=== PATIENT | female | born 1965 | race Caucasian/White ===

== ENCOUNTER → 2017-11-04 | Day surgery (SDC) | payer OTHER, BC ==
[~2017-11-04] MED LIST: Lactated Ringers 1,000 ML IV SCH; Propofol 200 MG/20 ML SDV IV ONE
[2017-11-04 11:39] VITALS: BP 119/60
--- NOTE | 2017-11-07 14:29 | OR ---
DATE OF OPERATION: 11/04/2017 PREOPERATIVE DIAGNOSIS: SCREENING COLONOSCOPY. POSTOPERATIVE DIAGNOSIS: SCREENING COLONOSCOPY. SURGEON: Braulio Spain MD PROCEDURE: FULL-LENGTH COLONOSCOPY. 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 COMPLICATIONS: None. SPECIMEN: None. FINDINGS: Normal full-length colonoscopy. RECOMMENDATIONS: Followup colonoscopy every 10 years. INDICATIONS: The patient was seen and advised to have a screening colonoscopy due to her age. DESCRIPTION OF PROCEDURE: The patient was prepped and draped, placed in left lateral decubitus position. A lubricated Olympus colonoscope was inserted and easily advanced to the cecum. Direct visualization of the ileocecal valve and appendiceal orifice was accomplished. Bowel prep was fine. Upon withdrawal of the scope, throughout the entire length of the colon, I could find no signs of polyps, mass, ulceration, or bleeding sites. No vascular abnormalities or signs of colitis. There were no diverticula. The rectal vault was benign. Retroflexion of scope in the rectum showed no anal lesions. Air was suctioned. Scope removed without complication. ELIZA/RACIEL /[id number]
== END ==
LOC: CC.SDS 08:30
PROVIDERS: ATTEND Family Medicine
DX: Z12.11 Encounter for screening for malignant neoplasm of colon (principal); E66.9 Obesity, unspecified; Z68.35 Body mass index [BMI] 35.0-35.9, adult; K21.9 Gastro-esophageal reflux disease without esophagitis; G47.30 Sleep apnea, unspecified; F41.8 Other specified anxiety disorders; J30.9 Allergic rhinitis, unspecified; Z87.891 Personal history of nicotine dependence; Z79.899 Other long term (current) drug therapy; Z88.5 Allergy status to narcotic agent; Z88.8 Allergy status to other drugs, medicaments and biological substances
CPT/HCPCS: J2704; J7120

== ENCOUNTER 2020-12-13 10:26 | Emergency (ER) | payer OTHER, BC ==
[2020-12-13 10:36] VITALS: BP 124/69; PULSE 76
--- NOTE | 2020-12-13 11:29 | EDM.PDOC ---
ED HPI GENERAL MEDICAL PROBLEM - General Chief Complaint: General Stated Complaint: UTI Time Seen by Provider: 12/13/20 10:50 Source of Information: Reports: Patient History Limitations: Reports: No Limitations - History of Present Illness INITIAL COMMENTS - FREE TEXT/NARRATIVE: Cecilia is a 55 year old female who presents to ER with complaints of dysuria, frequency with urination and chills. Symptoms started yesterday evening and have progressively gotten worse. Has taken tylenol and drank cranberry juice but has not had any improvement of her symptoms. No fevers. Denies nausea/vomiting or back pain. Onset: Gradual Duration: Hour(s): Location: Reports: Abdomen Quality: Reports: Ache Severity: Mild Improves with: Reports: None Associated Symptoms: Reports: Fever/Chills. Denies: Confusion, Chest Pain, Cough, Loss of Appetite, Nausea/Vomiting, Shortness of Breath Perineal Area Pain Score (Numeric/FACES): 3 - Related Data Allergies Allergy/AdvReac Type Severity Reaction Status Date / Time chlorpromazine Allergy Anaphylactic Verified 12/04/18 20:05 [From Thorazine] Shock codeine Allergy Stomach Verified 12/04/18 20:05 Ache metoclopramide HCl Allergy Swollen Verified 12/04/18 20:05 [From Reglan] Tongue morphine Allergy Cardiac Verified 12/04/18 20:05 Arrest ondansetron HCl [From Zofran] Allergy Headache Verified 12/04/18 20:05 perphenazine [From Trilafon] Allergy Cardiac Verified 12/04/18 20:05 Arrest prochlorperazine edisylate Allergy Swollen Verified 12/04/18 20:05 [From Compazine] Tongue prochlorperazine maleate Allergy Swollen Verified 12/04/18 20:05 [From Compazine] Tongue Home Meds: Home Meds Acetaminophen [Tylenol Extra Strength] 1 - 2 tab PO Q6H PRN 05/09/13 [History] DULoxetine [Cymbalta] 60 mg PO BEDTIME 05/09/13 [History] Ferrous Sulfate 325 mg PO BID 05/09/13 [History] Hydroxychloroquine [Plaquenil] 200 mg PO BID 05/09/13 [History] Loratadine [Claritin] 10 mg PO DAILY PRN 05/09/13 [History] Multivitamin [Multivitamins] 1 each PO DAILY 05/09/13 [History] Propranolol [Inderal LA 24 Hr] 60 mg PO BID 05/09/13 [History] ZOLMitriptan [Zomig] 5 mg PO ASDIRECTED 05/09/13 [History] Zolpidem [Ambien] 10 mg PO BEDTIME PRN 05/09/13 [History] diphenhydrAMINE [Benadryl] 50 mg PO BEDTIME PRN 05/09/13 [History] estradioL [Estradiol] 1 mg PO BEDTIME 05/09/13 [History] Ketorolac [Toradol] 60 mg IM Q6H PRN 06/03/13 [History] Promethazine HCl [Phenergan] 25 - 50 mg IM Q8H PRN 06/03/13 [History] Pantoprazole Sodium [Protonix] 40 mg PO BID 08/25/14 [History] Celecoxib 200 mg PO DAILY 08/12/17 [History] Cholecalciferol (Vitamin D3) [Vitamin D] 50,000 unit PO WE 08/12/17 [History] Citalopram [Citalopram HBr] 20 mg PO DAILY 08/12/17 [History] Butalb/Acetaminophen/Caffeine [Wvkhrv-Gxlomtni-Vnbk 50-325-40] 1 tab PO Q8H PRN 11/03/17 [History] Calcium Carb, Citrate/Vit D3 [Calcium + D3 ER Tablet] 2 tab PO DAILY 11/03/17 [History] Hydrocodone/Acetaminophen [Hydrocodon-Acetaminophen 5-325] 1 each PO Q6H PRN 11/03/17 [History] LORazepam 0.5 mg PO Q6H PRN 11/03/17 [History] Phentermine HCl 37.5 mg PO DAILY 11/03/17 [History] Sucralfate 1 gm PO TID PRN 11/03/17 [History] Folic Acid 1 mg PO DAILY 12/04/18 [History] Nitrofurantoin Monohyd/M-Cryst [Macrobid 100 mg Capsule] 100 mg PO BID #20 capsule 12/13/20 [Rx] Past Medical History HEENT History: Reports: Impaired Vision Cardiovascular History: Reports: Hypertension Gastrointestinal History: Reports: [employer] History: Reports: Musculoskeletal History: Reports: RA Other Musculoskeletal History: mix connective autoimmune disease Neurological History: Reports: Migraines Psychiatric History: Reports: Anxiety, Depression Hematologic History: Reports: Anemia, B12 Deficiency, Folic Acid - Infectious Disease History Infectious Disease History: Reports: Chicken Pox, Influenza - Past Surgical History GI Surgical History: Reports: Appendectomy, Cholecystectomy, Hernia Repair/Other Other GI Surgeries/Procedures: Hiatal hernia repair x2 Other Musculoskeletal Surgeries/Procedures:: mutilple join surgeries on wrist, left hip, knee scopes, right ankle. Social & Family History - Tobacco Use Tobacco Use Status *Q: Never Tobacco User Second Hand Smoke Exposure: No - Caffeine Use Caffeine Use: Reports: Coffee - Recreational Drug Use Recreational Drug Use: No ED ROS GENERAL - Review of Systems Review Of Systems: See Below Constitutional: Reports: Chills, Malaise. Denies: Fever, Weakness, Fatigue, Decreased Appetite HEENT: Denies: Ear Pain, Sinus Problem, Throat Pain, Vertigo Respiratory: Denies: Shortness of Breath, Cough Cardiovascular: Denies: Chest Pain, Edema, Lightheadedness Endocrine: Denies: Fatigue GI/Abdominal: Reports: Abdominal Pain. Denies: Constipation, Diarrhea, Nausea, Vomiting : Reports: Dysuria, Frequency, Urgency. Denies: Flank Pain, Hematuria Musculoskeletal: Reports: No Symptoms Skin: Reports: No Symptoms Neurological: Reports: No Symptoms ED EXAM, GENERAL - Physical Exam Exam: See Below Exam Limited By: No Limitations General Appearance: Alert, WD/WN, No Apparent Distress Head: Normocephalic Respiratory/Chest: No Respiratory Distress, Lungs Clear, Normal Breath Sounds Cardiovascular: Regular Rate, Rhythm GI/Abdominal: Normal Bowel Sounds, Soft, Non-Tender Extremities: Normal Inspection, No Pedal Edema Neurological: Alert, Oriented Skin Exam: Warm, Dry Course - Vital Signs Last Recorded V/S: Last Vital Signs Temp 97.8 F 12/13/20 10:30 Pulse 76 12/13/20 10:30 Resp 20 12/13/20 10:30 BP 124/69 12/13/20 10:30 Pulse Ox 98 12/13/20 10:30 - Orders/Labs/Meds Orders: Active Orders 24 hr Category Date Time Status CULTURE URINE [RM] Stat Lab 12/13/20 10:30 Received cefTRIAXone [Rocephin] 1 gm Med 12/13/20 11:30 Active Lidocaine 1% [Xylocaine-MPF 1%] 1.2 ml IM Q24H Medication Orders Ceftriaxone Sodium 1 gm/ (Lidocaine HCl 1.2 ml) 0 gm IM Q24H [facility] Labs: Laboratory Tests 12/13/20 Range/Units 10:30 Urine Color Yellow (YELLOW) Urine Appearance Cloudy (CLEAR) Urine pH 5.5 (4.5-8.0) Ur Specific [place] >= 1.030 H (1.003-1.020) Urine Protein >=300 H (NEGATIVE) mg/dL Urine Glucose (UA) Negative (NEGATIVE) mg/dL Urine Ketones Negative (NEGATIVE) mg/dL Urine Occult Blood Moderate H (NEGATIVE) Urine Nitrite Positive H (NEGATIVE) Urine Bilirubin Small H (NEGATIVE) Urine Urobilinogen 0.2 (0.2-1.0) EU/dL Ur Leukocyte Esterase Small H (NEGATIVE) Urine RBC 50-75 H (0-5) /HPF Urine WBC >100 H (0-5) /HPF Ur Epithelial Cells Few H (NOT SEEN) /HPF Urine Bacteria Many H (NOT SEEN) /HPF Urinalysis Comment Meds: Medications Generic Name Dose Route Start Last Admin Trade Name Freq PRN Reason Stop Dose Admin Ceftriaxone Sodium 1 gm/ 0 gm 12/13/20 11:30 Lidocaine HCl 1.2 ml IM Q24H [facility] Departure - Departure Time of Disposition: 11:27 Disposition: Home, Self-Care 01 Condition: Good Clinical Impression: UTI, Urinary tract infectious disease - Discharge Information *PRESCRIPTION DRUG MONITORING PROGRAM REVIEWED*: No *COPY OF PRESCRIPTION DRUG MONITORING REPORT IN PATIENT SILVIA: No Prescriptions: Nitrofurantoin Monohyd/M-Cryst [Macrobid 100 mg Capsule] 100 mg PO BID #20 capsule Instructions: Urinary Tract Infection, Adult Additional Instructions: 1. Push fluids 2. Alternate tylenol with ibuprofen for fever or discomfort 3. Macrobid 100 mg twice a day for 10 days 4. AZO as needed for discomfort 5. We will call you with any concerns with culture Sepsis Event Note (ED) - Evaluation Sepsis Screening Result: No Definite Risk - Focused Exam Vital Signs: Vital Signs Temp Pulse Resp BP Pulse Ox 12/13/20 10:30 97.8 F 76 20 124/69 98 - My Orders Last 24 Hours: My Active Orders 12/13/20 10:30 CULTURE URINE [RM] Stat 12/13/20 11:30 cefTRIAXone [Rocephin] 1 gm Lidocaine 1% [Xylocaine-MPF 1%] 1.2 ml IM Q24H - Assessment/Plan Last 24 Hours: My Active Orders 12/13/20 10:30 CULTURE URINE [RM] Stat 12/13/20 11:30 cefTRIAXone [Rocephin] 1 gm Lidocaine 1% [Xylocaine-MPF 1%] 1.2 ml IM Q24H
[2020-12-13] MEDS ORDERED: cefTRIAXone 1 GM, Lidocaine 1% 1.2 ML IM SCH ×2 (11:30)
== END 2020-12-13 11:36 | disposition home or self-care (01) ==
LOC: CC.ED 10:26
DX: N39.0 Urinary tract infection, site not specified (principal); I10 Essential (primary) hypertension; K21.9 Gastro-esophageal reflux disease without esophagitis; Z88.8 Allergy status to other drugs, medicaments and biological substances; Z88.5 Allergy status to narcotic agent; Z79.899 Other long term (current) drug therapy
CPT/HCPCS: 81001; 87086; 87088; 87186; 96372; 99283; J0696

== ENCOUNTER 2023-01-02 17:21 | Emergency (ER) | payer OTHER ==
[2023-01-02 17:40] LABS: APPEARANCE,URINE SLIGHTLY CLOUDY (CLEAR); BILIRUBIN,URINE NEGATIVE (NEGATIVE); COLOR,URINE YELLOW (YELLOW); GLUCOSE,URINE NEGATIVE (NEGATIVE); KETONES,URINE NEGATIVE (NEGATIVE); LEUKOCYTE ESTERASE,URINE SMALL (NEGATIVE); NITRITE,URINE NEGATIVE (NEGATIVE); OCCULT BLOOD,URINE TRACE-INTACT (NEGATIVE); PH,URINE 5.5 (4.5-8.0); PROTEIN,URINE 100 mg/dL (NEGATIVE); UROBILINOGEN,URINE 0.2 EU/dL (0.2-1.0)
[2023-01-02 17:42] VITALS: BP 108/72; PULSE 87
[2023-01-02 17:46] LABS: BACTERIA,URINE MODERATE /HPF (NOT SEEN); EPITHELIAL CELLS,URINE FEW /HPF (NOT SEEN); RBC,URINE 0-5 /HPF (0-5); WBC,URINE 50-75 /HPF (0-5)
[2023-01-02] MEDS: Phenazopyridine 95 MG Tab PO ONE (17:53)
[2023-01-02] MEDS: Nitrofurantoin Monohydrate/Macrocrystalline 100 MG Cap PO ONE (17:54)
[2023-01-03] MEDS ORDERED: Nitrofurantoin Monohydrate/Macrocrystalline 100 MG Cap PO ONE (17:48)
== END 2023-01-02 18:00 | disposition home or self-care (01) ==
LOC: CC.ED 17:21
DX: N39.0 Urinary tract infection, site not specified (principal); I10 Essential (primary) hypertension; K21.9 Gastro-esophageal reflux disease without esophagitis; Z79.899 Other long term (current) drug therapy; Z88.8 Allergy status to other drugs, medicaments and biological substances; Z88.5 Allergy status to narcotic agent
CPT/HCPCS: 81001; 87086; 99284; A9270-GY

== ENCOUNTER 2023-05-09 10:19 | Inpatient (IN) | payer OTHER ==
[2023-05-09] MEDS ORDERED: Docusate Sodium 100 MG Cap PO PRN (14:07)
[2023-05-09] MEDS ORDERED: Polyethylene Glycol 3350 Powder 17 GM Packet PO PRN (14:07)
[2023-05-09] MEDS ORDERED: Ondansetron 4 MG Tab.DIS PO PRN (14:07)
[2023-05-09] MEDS ORDERED: Ondansetron 4 MG/2 ML SDV IV PRN (14:07)
[2023-05-09] MEDS ORDERED: Sodium Chloride 0.9% 10 ML Syringe FLUSH PRN (14:07)
[2023-05-09] MEDS ORDERED: Ibuprofen 200 MG Tab PO PRN (14:07)
[2023-05-09 14:15] LABS: BASOPHILS ABSOLUTE AUTO 0.05 10^3/uL (0.00-0.50); EOSINOPHILS ABSOLUTE AUTO 0.09 10^3/uL (0.00-1.50); EOSINOPHILS PERCENT AUTO 1.7 % (0-6); HEMATOCRIT 37.3 % (37.0-47.0); HEMOGLOBIN 12.2 g/dL (12.0-16.0); IMMATURE GRAN ABSOLUTE AUTO 0.01 10^3/uL (0.00-0.49); IMMATURE GRAN PERCENT AUTO 0.2 % (0.0-4.9); LYMPHOCYTES ABSOLUTE AUTO 1.65 10^3/uL (0.60-5.00); LYMPHOCYTES PERCENT AUTO 31.5 % (24-44); MEAN CORPUSCULAR HEMOGLOBIN 30.7 pg (27.0-32.0); MEAN CORPUSCULAR HGB CONC 32.7 g/dL (32.0-36.0); MEAN CORPUSCULAR VOLUME 93.7 fL (83.0-97.0); MONOCYTES ABSOLUTE AUTO 0.23 10^3/uL (0.00-1.50); MONOCYTES PERCENT AUTO 4.4 % (0-10); NEUTROPHILS ABSOLUTE AUTO 3.21 x10^3/uL (1.80-8.00); NEUTROPHILS PERCENT AUTO 61.2 % (41-71); PLATELET COUNT,PLT 277 10^3/uL (150-400); RED BLOOD CELL COUNT 3.98 x10^6/uL (4.00-5.50); WHITE BLOOD CELL COUNT,WBC 5.2 10^3/uL (4.0-11.0)
[2023-05-09 14:37] LABS: ALANINE AMINOTRANSFERASE,ALT 78 U/L (12-78); ALBUMIN 3.5 g/dL (3.4-5.0); ALKALINE PHOSPHATASE 129 U/L (46-116); ASPARTATE AMNIOTRANSFERASE,AST 26 U/L (15-37); BILIRUBIN TOTAL 0.4 mg/dL (0.0-1.0); BLOOD UREA NITROGEN,BUN 29 mg/dL (7-18); C-REACTIVE PROTEIN < 0.50 mg/dL (<=0.50); CALCIUM 8.3 mg/dL (8.4-10.1); CARBON DIOXIDE,CO2 27 mmol/L (21-32); CHLORIDE,CL 104 mEq/L (98-106); CREATININE 1.1 mg/dL (0.6-1.0); EST CRCL DRUG DOSING (CG) 57.61 mL/min; ESTIMATED GFR 59 mL/min (>=60); GLUCOSE RANDOM 120 mg/dL (75-99); POTASSIUM,K 4.5 mEq/L (3.5-5.0); PROTEIN TOTAL,TP 6.6 g/dL (6.4-8.2); SODIUM,NA 139 mEq/L (136-145)
[2023-05-09] MEDS: Piperacillin/Tazobactam 4.5 GM in Sodium Chloride 0.9% 100 ML IV ONE (14:44)
[2023-05-09 15:04] LABS: APPEARANCE,URINE SLIGHTLY CLOUDY (CLEAR); BILIRUBIN,URINE NEGATIVE (NEGATIVE); COLOR,URINE YELLOW (YELLOW); GLUCOSE,URINE NEGATIVE (NEGATIVE); KETONES,URINE TRACE mg/dL (NEGATIVE); LEUKOCYTE ESTERASE,URINE SMALL (NEGATIVE); NITRITE,URINE NEGATIVE (NEGATIVE); OCCULT BLOOD,URINE TRACE-INTACT (NEGATIVE); PH,URINE 5.5 (4.5-8.0); PROTEIN,URINE 30 mg/dL (NEGATIVE); UROBILINOGEN,URINE 0.2 EU/dL (0.2-1.0)
[2023-05-09 15:13] LABS: BACTERIA,URINE FEW /HPF (NOT SEEN); EPITHELIAL CELLS,URINE FEW /HPF (NOT SEEN); MUCUS,URINE OCCASIONAL /HPF (NOT SEEN); RBC,URINE 20-30 /HPF (0-5); WBC,URINE 40-50 /HPF (0-5)
[2023-05-09] MEDS ORDERED: Take Home: LORazepam 0.5 MG Tab, 2 Tab Pack PO PRN (15:30)
[2023-05-09] MEDS ORDERED: diphenhydrAMINE 25 MG Cap PO PRN (16:09)
[2023-05-09] MEDS ORDERED: guaiFENesin/Dextromethorphan 100-10 MG/5 ML Soln 5 ML Cup PO PRN (16:29)
[2023-05-09] MEDS ORDERED: Acetaminophen/HYDROcodone 325-5 MG Tab PO PRN (16:44)
[2023-05-09] MEDS ORDERED: Ketorolac 30 MG/ML SDV IM PRN (17:01)
[2023-05-09] MEDS ORDERED: Promethazine 25 MG/ML SDV IM PRN (17:02)
[2023-05-09] MEDS ORDERED: Ketorolac 30 MG/ML SDV IVPUSH PRN (17:04)
[2023-05-09] MEDS ORDERED: CAFFEINE PO PRN (17:06)
[2023-05-09] MEDS ORDERED: BUTALB PO PRN (17:06)
[2023-05-09] MEDS ORDERED: ACETAMINOPHEN PO PRN (17:06)
[2023-05-09] MEDS: Hydrocortisone 20 MG Tab PO SCH (17:19)
[2023-05-09] MEDS: Hydroxychloroquine 200 MG Tab PO SCH (17:19)
[2023-05-09] MEDS: Piperacillin/Tazobactam 4.5 GM in Sodium Chloride 0.9% 100 ML IV SCH (18:06)
[2023-05-09] MEDS: Pantoprazole 40 MG Tab.CR PO SCH (18:58)
[2023-05-09] MEDS: DULoxetine 30 MG Cap PO SCH (19:57)
[2023-05-09] MEDS: traZODone 50 MG Tab PO SCH (19:57)
[2023-05-09] MEDS: Trospium 20 MG Tab PO SCH (19:57)
[2023-05-10 07:18] LABS: BASOPHILS ABSOLUTE AUTO 0.06 10^3/uL (0.00-0.50); BASOPHILS PERCENT AUTO 1.3 % (0-1); EOSINOPHILS ABSOLUTE AUTO 0.27 10^3/uL (0.00-1.50); EOSINOPHILS PERCENT AUTO 5.7 % (0-6); HEMATOCRIT 37.1 % (37.0-47.0); HEMOGLOBIN 12.4 g/dL (12.0-16.0); IMMATURE GRAN ABSOLUTE AUTO 0.01 10^3/uL (0.00-0.49); IMMATURE GRAN PERCENT AUTO 0.2 % (0.0-4.9); LYMPHOCYTES PERCENT AUTO 52.5 % (24-44); MEAN CORPUSCULAR HGB CONC 33.4 g/dL (32.0-36.0); MEAN CORPUSCULAR VOLUME 92.8 fL (83.0-97.0); MONOCYTES ABSOLUTE AUTO 0.35 10^3/uL (0.00-1.50); MONOCYTES PERCENT AUTO 7.4 % (0-10); NEUTROPHILS ABSOLUTE AUTO 1.57 x10^3/uL (1.80-8.00); NEUTROPHILS PERCENT AUTO 32.9 % (41-71); PLATELET COUNT,PLT 243 10^3/uL (150-400); WHITE BLOOD CELL COUNT,WBC 4.8 10^3/uL (4.0-11.0)
[2023-05-10 07:34] LABS: ALANINE AMINOTRANSFERASE,ALT 67 U/L (12-78); ALBUMIN 3.1 g/dL (3.4-5.0); ALKALINE PHOSPHATASE 107 U/L (46-116); ASPARTATE AMNIOTRANSFERASE,AST 23 U/L (15-37); BILIRUBIN TOTAL 0.6 mg/dL (0.0-1.0); BLOOD UREA NITROGEN,BUN 23 mg/dL (7-18); CALCIUM 8.3 mg/dL (8.4-10.1); CARBON DIOXIDE,CO2 28 mmol/L (21-32); CHLORIDE,CL 108 mEq/L (98-106); EST CRCL DRUG DOSING (CG) 63.37 mL/min; GLUCOSE RANDOM 86 mg/dL (75-99); PROTEIN TOTAL,TP 6.2 g/dL (6.4-8.2); SODIUM,NA 142 mEq/L (136-145)
[2023-05-10 07:40] LABS: ESTIMATED GFR 66 mL/min (>=60)
[2023-05-10 07:41] LABS: C-REACTIVE PROTEIN < 0.50 mg/dL (<=0.50)
[2023-05-10] MEDS: Celecoxib 100 MG Cap PO SCH (07:51)
[2023-05-10] MEDS: Multivitamin Tab PO SCH (07:52)
[2023-05-10] MEDS: Loratadine 10 MG Tab PO SCH (07:52)
[2023-05-10] MEDS: Cholecalciferol (Vitamin D3) 5,000 UNIT Tab ONE (07:52)
[2023-05-10] MEDS: Folic Acid 1 MG Tab PO SCH (07:52)
[2023-05-10] MEDS: Calcium Carbonate/Vitamin D3 1250 MG-5 MCG Tab PO SCH (07:53)
[2023-05-10] MEDS: Estradiol 1 MG Tab PO SCH (07:53)
[2023-05-10] MEDS: Ferrous Sulfate 324 MG Tab.EC PO SCH (07:53)
[2023-05-10] MEDS: Hydrocortisone 20 MG Tab PO SCH ×2 (07:54→14:04)
[2023-05-10] MEDS: Propranolol 60 MG Cap.ER PO SCH (07:56)
[2023-05-10] MEDS: BREXPIPRAZOLE 4 MG PO SCH (07:58)
[2023-05-10] MEDS ORDERED: Non-Formulary Medication 1 Each (D-Mannose [Azo D-Mannose] 500 MG Cap) PO SCH (08:00)
[2023-05-10] MEDS ORDERED: Diclofenac Sodium 1% Gel 100 GM Tube TOP PRN (08:00)
[2023-05-10] MEDS: Enoxaparin 40 MG/0.4 ML Syringe SUBCUT SCH (08:04)
[2023-05-10] MEDS: METHYLPHENIDATE 54 MG PO SCH (08:15)
[2023-05-10] MEDS: Fluconazole 100 MG Tab PO ONE ×2 (13:21→14:05)
[2023-05-10] MEDS: Acetaminophen 325 MG Tab PO PRN (19:53)
[2023-05-11 07:36] LABS: BASOPHILS ABSOLUTE AUTO 0.06 10^3/uL (0.00-0.50); BASOPHILS PERCENT AUTO 1.1 % (0-1); EOSINOPHILS ABSOLUTE AUTO 0.16 10^3/uL (0.00-1.50); EOSINOPHILS PERCENT AUTO 2.8 % (0-6); HEMATOCRIT 36.2 % (37.0-47.0); HEMOGLOBIN 12.2 g/dL (12.0-16.0); IMMATURE GRAN ABSOLUTE AUTO 0.01 10^3/uL (0.00-0.49); IMMATURE GRAN PERCENT AUTO 0.2 % (0.0-4.9); LYMPHOCYTES ABSOLUTE AUTO 2.61 10^3/uL (0.60-5.00); LYMPHOCYTES PERCENT AUTO 46.3 % (24-44); MEAN CORPUSCULAR HEMOGLOBIN 31.2 pg (27.0-32.0); MEAN CORPUSCULAR HGB CONC 33.7 g/dL (32.0-36.0); MEAN CORPUSCULAR VOLUME 92.6 fL (83.0-97.0); MONOCYTES ABSOLUTE AUTO 0.38 10^3/uL (0.00-1.50); MONOCYTES PERCENT AUTO 6.7 % (0-10); NEUTROPHILS ABSOLUTE AUTO 2.42 x10^3/uL (1.80-8.00); NEUTROPHILS PERCENT AUTO 42.9 % (41-71); PLATELET COUNT,PLT 277 10^3/uL (150-400); RED BLOOD CELL COUNT 3.91 x10^6/uL (4.00-5.50); WHITE BLOOD CELL COUNT,WBC 5.6 10^3/uL (4.0-11.0)
[2023-05-11] MEDS: Cholecalciferol (Vitamin D3) 5,000 UNIT Tab ONE (07:37)
[2023-05-11] MEDS: CHOLECALCIFEROL 50000 UNIT PO SCH (07:40)
[2023-05-11 07:49] LABS: ALANINE AMINOTRANSFERASE,ALT 55 U/L (12-78); ALBUMIN 3.1 g/dL (3.4-5.0); ALKALINE PHOSPHATASE 103 U/L (46-116); ASPARTATE AMNIOTRANSFERASE,AST 21 U/L (15-37); BILIRUBIN TOTAL 0.4 mg/dL (0.0-1.0); BLOOD UREA NITROGEN,BUN 19 mg/dL (7-18); CALCIUM 8.1 mg/dL (8.4-10.1); CARBON DIOXIDE,CO2 26 mmol/L (21-32); CHLORIDE,CL 107 mEq/L (98-106); EST CRCL DRUG DOSING (CG) 63.37 mL/min; GLUCOSE RANDOM 84 mg/dL (75-99); PROTEIN TOTAL,TP 6.2 g/dL (6.4-8.2); SODIUM,NA 143 mEq/L (136-145)
[2023-05-11 07:57] LABS: C-REACTIVE PROTEIN < 0.50 mg/dL (<=0.50); ESTIMATED GFR 66 mL/min (>=60)
[2023-05-11] MEDS: TIRZEPATIDE 10 MG/0.5 ML SQ SCH (09:26)
[2023-05-11] MEDS: Ertapenem 1 GM Vial IVPUSH ONE (12:48)
[2023-05-11 14:01] VITALS: BP 108/71; PULSE 83
[2023-05-15] MEDS ORDERED: Methotrexate 2.5 MG Tab PO SCH (08:00)
== END 2023-05-11 13:25 | disposition home or self-care (01) | DRG 690 ==
LOC: CC.MS 10:19 → UNDOADMIN 10:19 → CC.MS 14:07
PROVIDERS: ADMIT Nurse Practitioner Family; ATTEND Nurse Practitioner Family
DX: N39.0 Urinary tract infection, site not specified (principal); Z16.24 Resistance to multiple antibiotics; I10 Essential (primary) hypertension; K21.9 Gastro-esophageal reflux disease without esophagitis; G43.909 Migraine, unspecified, not intractable, without status migrainosus; M06.9 Rheumatoid arthritis, unspecified; F41.9 Anxiety disorder, unspecified; F32.A Depression, unspecified; J06.9 Acute upper respiratory infection, unspecified; B96.1 Klebsiella pneumoniae [K. pneumoniae] as the cause of diseases classified elsewhere; Z88.5 Allergy status to narcotic agent; Z88.8 Allergy status to other drugs, medicaments and biological substances; Z79.899 Other long term (current) drug therapy; Z90.49 Acquired absence of other specified parts of digestive tract; Z98.890 Other specified postprocedural states
CPT/HCPCS: 36415; 80053; 81001; 85025; 86140; 87086; 87088; 87186; A9270-GY; J1335; J1650; J2543; J3490